=== PATIENT | female | born 1975 | race Caucasian/White ===

== ENCOUNTER 2022-06-23 08:29 | Outpatient (REF) | payer OTHER, SELFPAY ==
[2022-06-23 11:15] LABS: Anion Gap 15 (12-20); Blood Urea Nitrogen 17 mg/dL (9-16); Carbon Dioxide 21 mmol/L (22-29); Chloride 108 mmol/L (96-108); Estimated Glomerular Filt Rate > 60; Potassium 4.3 mmol/L (3.3-5.1); Sodium 140 mmol/L (135-145)
== END 2022-06-23 08:30 | disposition home or self-care (01) ==
LOC: HO.10HDL 08:29
PROVIDERS: Visit Provider Family Medicine
DX: I10 Essential (primary) hypertension (principal)
CPT/HCPCS: 36415; 80051; 82565; 84520

== ENCOUNTER 2022-07-01 13:27 | Outpatient (REF) | payer OTHER, SELFPAY ==
--- NOTE | ~2022-07-01 | US_ITS ---
EXAMINATION: US THYROID CLINICAL INFORMATION: Nontoxic goiter. COMPARISON: None. TECHNIQUE: Linear transducer grayscale and color Doppler examination with attention to the region of the thyroid. FINDINGS: SIZE: Measurements of the thyroid lobes and nodules are given in sagittal, anteroposterior and transverse dimensions respectively. Right Thyroid Lobe: 6.2 x 2.7 x 2.2 cm, volume 19.3 mL. Parenchyma: The gland echotexture is heterogeneous. Thyroid vascularity is increased. Left Thyroid Lobe: 5.3 x 2.8 x 2.9 cm, volume 22.4 mL. Parenchyma: The gland echotexture is heterogeneous. Thyroid vascularity is increased. Isthmus: 0.4 cm in maximum AP dimension. Estimated total number of nodules greater than or equal to 1 cm: 2. Prefitter Doors nodules are described as follows: 1. Location: Isthmus. Size: 0.5 x 0.4 x 0.5 cm, volume 0.05 mL. Nodule characteristics: Composition: Solid (2). Echogenicity: Very hypoechoic (3). Shape: Not taller than wide (0). Margins: Ill-defined (0). Echogenic Foci: None (0). ACR TI-RADS total points: 5 ACR TI-RADS category: 4 2. Location: Right mid inferior. Size: 3.3 x 2.0 x 2.5 cm, volume 8.6 mL. Nodule characteristics: Composition: Solid/almost completely solid (2). Echogenicity: Isoechoic (1). Shape: Not taller than wide (0). Margins: Smooth (0). Echogenic Foci: None (0). ACR TI-RADS total points: 3 ACR TI-RADS category: 3 3. Location: Left superior mid. Size: 3.0 x 2.5 x 2.6 cm, volume 10.2 mL. Nodule characteristics: Composition: Solid (2). Echogenicity: Isoechoic (1). Shape: Not taller than wide (0). Margins: Smooth (0). Echogenic Foci: None (0). ACR TI-RADS total points: 3 ACR TI-RADS category: 3 NODES: No lymphadenopathy is seen in the tissue surrounding the thyroid gland. US/US thyroid IMPRESSION: Enlarged thyroid goiter with 2 larger nodules both class 3 measuring 3.3 and 3.0 cm. Based upon ACR TI-RADS recommendations, biopsy is recommended for both of these. ACR TI-RADS RECOMMENDATION REFERENCE: Ultrasound-guided fine-needle aspiration, follow up ultrasound, no further follow up. * TR1 (0 point) and TR2 (2 points): No FNA or follow up. * TR3 (3 points): FNA if more than or equal to 2.5 cm in maximum dimension, followup ultrasound in 1, 3 and 5 years if 1.5 to 2.4 cm in maximum dimension. * TR4 (4-6 points): FNA if more than or equal to 1.5 cm in maximum dimension, followup ultrasound in 1, 2, 3 and 5 years if 1 to 1.4 cm in maximum dimension. * TR5 (more than or equal to 7 points): FNA if more than or equal to 1 cm in maximum dimension, followup ultrasound every year for 5 years if 0.5 to 0.9 cm in maximum dimension. * TR3, TR4 or TR5 nodules that are below the size threshold for followup receive no follow up.
== END 2022-07-01 13:28 | disposition home or self-care (01) ==
LOC: HO.US 13:27
PROVIDERS: Visit Provider Family Medicine
DX: E04.9 Nontoxic goiter, unspecified (principal)
CPT/HCPCS: 76536

== ENCOUNTER 2022-07-28 09:51 | Outpatient (REF) | payer OTHER, SELFPAY ==
--- NOTE | ~2022-07-28 | US_ITS ---
PROCEDURE: ULTRASOUND-GUIDED THYROID BIOPSY CLINICAL INFORMATION: Thyroid nodules in midpole right lobe and upper midpole left lobe. COMPARISON: None available. TECHNIQUE: Following explaining ultrasound-guided fine-needle biopsy aspiration procedure, benefits and risk, a written consent was obtained. Patient was placed supine on ultrasound stretcher with head extended and preliminary ultrasound imaging was obtained through the right and left neck and an optimal site was selected and marked on the skin. The entire neck was cleaned and draped in the usual sterile manner with Betadine solution. 1% lidocaine was injected at the markers placed on the right and left neck. Initially a 25-gauge needle attached to syringe was advanced under sterile ultrasound guidance and right neck fine-needle biopsy was performed x3. Subsequently left upper midpole nodule biopsy was performed x3 on ultrasound guidance. After confirmation from pathologist of adequate tissue on either side, the biopsy was terminated. The area was cleaned and bandage was applied at puncture sites. Patient tolerated procedure extremely well. FINDINGS: On preliminary ultrasound imaging there is large right and left heterogeneous thyroid nodule seen. Ultrasound-guided 3 pass fine-needle biopsy of right midpole and left upper midpole nodule was performed. US/US guided fine needle asp IMPRESSION: Successful ultrasound-guided fine-needle aspiration of right midpole and left upper midpole thyroid nodule was performed.
--- NOTE | ~2022-07-28 | US_ITS ---
PROCEDURE: ULTRASOUND-GUIDED THYROID BIOPSY CLINICAL INFORMATION: Thyroid nodules in midpole right lobe and upper midpole left lobe. COMPARISON: None available. TECHNIQUE: Following explaining ultrasound-guided fine-needle biopsy aspiration procedure, benefits and risk, a written consent was obtained. Patient was placed supine on ultrasound stretcher with head extended and preliminary ultrasound imaging was obtained through the right and left neck and an optimal site was selected and marked on the skin. The entire neck was cleaned and draped in the usual sterile manner with Betadine solution. 1% lidocaine was injected at the markers placed on the right and left neck. Initially a 25-gauge needle attached to syringe was advanced under sterile ultrasound guidance and right neck fine-needle biopsy was performed x3. Subsequently left upper midpole nodule biopsy was performed x3 on ultrasound guidance. After confirmation from pathologist of adequate tissue on either side, the biopsy was terminated. The area was cleaned and bandage was applied at puncture sites. Patient tolerated procedure extremely well. FINDINGS: On preliminary ultrasound imaging there is large right and left heterogeneous thyroid nodule seen. Ultrasound-guided 3 pass fine-needle biopsy of right midpole and left upper midpole nodule was performed. US/US guided fine needle asp add IMPRESSION: Successful ultrasound-guided fine-needle aspiration of right midpole and left upper midpole thyroid nodule was performed.
[2022-07-28] MEDS: Lidocaine HCl 1 % MPF 5 ML VIAL SUBCUT (11:25)
== END 2022-07-28 09:52 | disposition home or self-care (01) ==
LOC: HO.US 09:51
PROVIDERS: PCP Family Medicine; Visit Provider Family Medicine
DX: E04.2 Nontoxic multinodular goiter (principal)
CPT/HCPCS: 10005; 10006; 88172; 88173; 88177; 88305

== ENCOUNTER → 2022-08-14 08:46 | Outpatient (REF) | payer OTHER, SELFPAY ==
--- NOTE | 2022-08-14 08:50 | CA_ITS ---
Transthoracic Echocardiogram Patient (Last, First, Middle): Madalyn Aguayo, Gender: Female Date of : 1975 Age: 47 Procedure Date: 08/14/2022 Procedure Type: Transthoracic Echocardiogram Location: OP Height: 175.26 cm Weight: 145.15 kg BSA: 2.52 m2 Heart Rate: 70 bpm BP: 115 / 75 mmHg Stores [employer]: JOÃO Referring MD: Andrea Urrutia MD Symptoms: R01.1 CARDIAC MURMUR Study Quality: Adequate ECG Rhythm: Sinus Conclusions: - The left ventricular systolic function is normal. The calculated ejection fraction is 58% by biplane method. - There is mild aortic valve stenosis. Findings Left Ventricle Normal left ventricular cavity size. There is mildly increased left ventricular wall thickness. The left ventricular systolic function is normal. The calculated ejection fraction is 58% by biplane method. There is no evidence of regional wall motion abnormalities. Diastolic function is normal for age. Right Ventricle Mildly increased right ventricular cavity size. There is normal right ventricular systolic function. Atria Both atria are normal in size. Aortic Valve There is mild calcification of the aortic valve. There is mild aortic valve stenosis. The mean gradient is 13 mmHg. The aortic valve area is 1.42 cm2. There is trace (trivial) aortic valve regurgitation. Probable trileaflet valve, but difficult to see all leaflets clearly. Mitral Valve The mitral valve appears normal. There is no mitral valve regurgitation. There is no mitral valve stenosis. Pulmonic Valve The pulmonic valve is likely normal. Tricuspid Valve Normal tricuspid valve structure. There is mild tricuspid valve regurgitation. There is no evidence of pulmonary hypertension. Great Vessels The aorta was not well visualized. The aortic annulus is normal in size. Venous The inferior vena cava is normal in size and collapses greater than 50% with inspiration. Pericardium/Pleural There is no evidence of pericardial effusion. Prior Study Comparison No prior study available for comparison. Measurements 2D Linear Measurements IVSd: 1.03 0.6-0.9/0.6-1.0 cm LVIDd: 4.16 3.9-5.3/4.2-5.9 cm LVIDd Index: 1.65 2.4-3.2/2.2-3.1 cm/m2 LVIDs: 2.16 2.0-3.6 cm LVPWd: 1.00 0.7-1.1 cm LA Diam: 3.70 2.7-3.8/3.0-4.0 cm LAIDs Index: 1.47 1.5-2.3 cm/m2 LV Mass: 171.79 67-162/88-224 g LV Mass Index: 68.17 43-95/49-115 g/m2 LVOT Diam: 1.90 3.0+(-)1.3 cm 2D Systolic Function EF 4C: 56.30 >55% EF 2C: 62.60 >55% EF BiP: 58.10 >55% Mitral Valve MV Pk E: 1.11 MV PK A: 0.78 MV Decel Time: 141.00 E/A: 1.40 E'Lateral: 17.30 E'Medial: 9.36 E/E' Med: 11.90 E/E' Lat: 6.40 PHT: 41.00 MVA PHT: 5.37 Decel Barnes: 7.82 Aortic Valve AoV Pk Roberto: 2.15 AoV Mn Roberto: 1.64 AoV VTI: 0.53 AoV Pk Grad: 18.00 Aov Mn Grad: 13.00 CHERRI Cont.VTI: 1.42 LVOT LVOT Pk Roberto: 1.21 LVOT Mn Roberto: 0.82 LVOT VTI: 0.26 LVOT Pk Grad: 6.00 LVOT Mn Grad: 3.00 LVOT Diam: 1.90 LVOT Area: 2.84 Diastolic Function MV Pk E: 1.11 MV Pk A: 0.78 E/A: 1.40 E'Medial: 9.36 E/E' Med: 11.90 E' Laterial: 17.30 E/E' Lat: 6.40 Right Ventricle TAPSE (mm): 21.40 TVS' Roberto: 11.60 Tricuspid Valve TR Pk Roberto: 2.14 TR Pk Grad: 18.00 RA Press: 3.00 RVSP: 21.00 Great Vessels Aorta Sinus of Valsalva: 3.00 2.0-3.5 cm Pulmonary Valve PV Pk Roberto: 1.44 Peak PV Grad: 8.00 Updated in Other Vendor System with Status of Final Kurtis Johnson MD electronically signed on 08/14/2022 2:22:08 PM with status of Final
== END ==
LOC: HO.CARD 08:46
PROVIDERS: PCP Family Medicine; Visit Provider Family Medicine
DX: R01.1 Cardiac murmur, unspecified (principal)
CPT/HCPCS: 93306